=== PATIENT | female | born 1950 | race Caucasian/White ===

== ENCOUNTER 2020-06-12 12:28 | Emergency (ER) | payer MEDICARE ==
[~2020-06-12 12:28] MED LIST: ASPIRIN CHEWABL81 MG PO; FERROUS SULFAT325 MG PO; HYDROCHLOROTHIA25 MG PO; LIPITOR TAB 2020 MG PO; LIPITOR80 MG PO; LOPRESSOR100 MG PO; MOBIC15 MG PO; PLAVIX 75 MG TA75 MG PO; PRINIVIL20 MG PO; REMERON15 MG PO; TOPROL XL25 MG PO; TYLENOL 325MG325 MG PO; XANAX1 MG PO
[2020-06-12 16:58] LABS: BUN/CREATININE RATIO 13 (0-10)
[2020-06-12 18:16] LABS: HEMOGLOBIN 13.4 gm/dl (12.3-15.3); RED BLOOD COUNT 4.77 M/UL (4.00-5.10); WHITE BLOOD COUNT 7.4 K/UL (4.5-11.0)
[2020-06-12] MEDS ORDERED: K-DUR TAB 20 M20 MEQ PO (20:21)
== END 2020-06-12 22:20 | disposition home or self-care (01) ==
LOC: ER1 12:28
PROVIDERS: Emergency Medicine
DX: E87.6 Hypokalemia (principal); I10 Essential (primary) hypertension; Z85.3 Personal history of malignant neoplasm of breast; Z90.11 Acquired absence of right breast and nipple
CPT/HCPCS: 36415; 70450; 71045; 80053; 81001; 82550; 82553; 83735; 83874; 84484; 85025; 99284

== ENCOUNTER 2020-08-21 10:57 | Inpatient (IN) | payer MEDICARE, OTHER ==
[~2020-08-21] VITALS: Ht 165.1 cm; Wt 83.0 kg
[~2020-08-21 10:57] MED LIST changes: +K-DUR TAB 20 M20 MEQ PO
[2020-08-21 12:04] LABS: HEMOGLOBIN 14.3 gm/dl (12.3-15.3); RED BLOOD COUNT 5.36 M/UL (4.00-5.10)
[2020-08-21 12:29] LABS: BUN/CREATININE RATIO 10 (0-10)
[2020-08-21] MEDS ORDERED: CYMBALTA60 MG PO (14:31)
[2020-08-21] MEDS ORDERED: PROTONIX40 MG PO (14:31)
[2020-08-21] MEDS ORDERED: FERROUS SULFAT325 M2 PO (14:32)
[2020-08-21] MEDS ORDERED: ANTIVERT 12.512.5 MG PO (14:32)
[2020-08-21] MEDS ORDERED: ALPRAZOLAM1 MG PO (14:32)
[2020-08-21] MEDS ORDERED: CRESTOR10 MG PO (14:33)
[2020-08-22 03:08] LABS: HEMOGLOBIN 13.6 gm/dl (12.3-15.3); RED BLOOD COUNT 4.98 M/UL (4.00-5.10)
[2020-08-22 03:26] LABS: BUN/CREATININE RATIO 9 (0-10)
[2020-08-23 01:42] LABS: HEMOGLOBIN 13.7 gm/dl (12.3-15.3); RED BLOOD COUNT 5.07 M/UL (4.00-5.10)
[2020-08-23 01:43] LABS: WHITE BLOOD COUNT 6.9 K/UL (4.5-11.0)
[2020-08-23 02:02] LABS: BUN/CREATININE RATIO 7 (0-10)
[2020-08-23] MEDS ORDERED: LOPRESSOR 25 MG25 MG PO (09:30)
[2020-08-24 07:52] LABS: HEMOGLOBIN 12.8 gm/dl (12.3-15.3); RED BLOOD COUNT 4.82 M/UL (4.00-5.10); WHITE BLOOD COUNT 5.6 K/UL (4.5-11.0)
[2020-08-24 08:24] LABS: BUN/CREATININE RATIO 9 (0-10)
--- NOTE | 2020-08-25 09:23 | NUR ---
NURSE RECIEVED CALL FROM TELEMETRY, PATIENT HAD 11 BEAT RUN OF V-TACH. PROVIDER NOTIFIED. PROVIDER ORDERED AN EKG FOR PATIENT.
--- NOTE | 2020-08-25 18:02 | NUR ---
PERFORMED MANUAL DISEMPACTION PER DOCTORS ORDER. PATIENT HAD HAD A SMALL DARK BROWN BOWEL MOVEMENT. STOOL WAS SOFT, AND NO STOOL PALPATED IN COLON. PATIENT TOLERATED PROCEDURE WELL. COCCYXS WAS NOTED TO BE RED, BUT STILL BLANCHABLE. ALLYVEN WAS PUT IN PLACE. PATIENT WAS CLEANED, A NEW BRIEF APPLIED. WCTM.
[2020-08-26 05:49] LABS: HEMOGLOBIN 14.7 gm/dl (12.3-15.3); WHITE BLOOD COUNT 5.4 K/UL (4.5-11.0)
[2020-08-26 05:50] LABS: RED BLOOD COUNT 5.4 M/UL (4.00-5.10)
[2020-08-26 06:07] LABS: BUN/CREATININE RATIO 11 (0-10)
[2020-08-26] MEDS ORDERED: NORVASC5 MG PO (14:56)
[2020-08-26] MEDS ORDERED: OMNICEF 300 MG300 MG PO (14:56)
[2020-08-26] MEDS ORDERED: FLAGYL500 MG PO (14:56)
[2020-08-26] MEDS ORDERED: POLYETHYLENE GL17 GM PO (14:59)
[2020-08-26] MEDS ORDERED: COLACE 100MG C100 MG PO (14:59)
[2020-08-26] MEDS ORDERED: LISINOPRIL10 MG PO (14:59)
[2020-08-26] MEDS ORDERED: CEFUROXIME500 MG PO (15:42)
== END 2020-08-26 17:48 | disposition home health service (06) | DRG 388 ==
LOC: ER1 10:57 → M/S 14:02 → CDU 14:02 → M/S 16:53
PROVIDERS: Emergency Medicine; Internal Medicine Gastroenterology; Physician Assistant Medical; ADMIT Internal Medicine
PROC: 0DJ08ZZ Inspection of Upper Intestinal Tract, Via Natural or Artificial Opening Endoscopic (ICD-10-PCS; principal; 2020-08-23 10:36)
PROC: 0DBL8ZZ Excision of Transverse Colon, Via Natural or Artificial Opening Endoscopic (ICD-10-PCS; 2020-08-23 10:36)
DX: K56.41 Fecal impaction (principal); K57.31 Diverticulosis of large intestine without perforation or abscess with bleeding; I69.351 Hemiplegia and hemiparesis following cerebral infarction affecting right dominant side; N30.01 Acute cystitis with hematuria; J98.11 Atelectasis; G93.49 Other encephalopathy; I47.2 Ventricular tachycardia; R15.9 Full incontinence of feces; I10 Essential (primary) hypertension; E87.6 Hypokalemia; E83.42 Hypomagnesemia; Z20.822 Contact with and (suspected) exposure to COVID-19; B96.20 Unspecified Escherichia coli [E. coli] as the cause of diseases classified elsewhere; K21.9 Gastro-esophageal reflux disease without esophagitis; D50.9 Iron deficiency anemia, unspecified; K52.89 Other specified noninfective gastroenteritis and colitis; E78.5 Hyperlipidemia, unspecified; K63.5 Polyp of colon; Z90.49 Acquired absence of other specified parts of digestive tract; Z99.3 Dependence on wheelchair; Z79.82 Long term (current) use of aspirin; B96.89 Other specified bacterial agents as the cause of diseases classified elsewhere
CPT/HCPCS: 36415; 70450; 70551; 74018; 80048; 80053; 81001; 82272; 82550; 82553; 83605; 83735; 83874; 84132; 84484; 85025; 85027; 85610; 85730; 86850; 86900; 86901; 87077; 87086; 87186; 92610; 93005; 96374; 97110; 97110-GP-CQ; 97162; 97166; 97530-GP-CQ; 99284; A6212; C9113; J0360; J0696; J2704; J3475; J3480; J7040; U0002

== ENCOUNTER 2020-10-04 15:43 | Emergency (ER) | payer MEDICARE ==
[~2020-10-04 15:43] MED LIST changes: +ALPRAZOLAM1 MG PO; +ANTIVERT 12.512.5 MG PO; +CEFUROXIME500 MG PO; +COLACE 100MG C100 MG PO; +CRESTOR10 MG PO; +CYMBALTA60 MG PO; +FERROUS SULFAT325 M2 PO; +FLAGYL500 MG PO; +LISINOPRIL10 MG PO; +LOPRESSOR 25 MG25 MG PO; +NORVASC5 MG PO; +OMNICEF 300 MG300 MG PO; +POLYETHYLENE GL17 GM PO; +PROTONIX40 MG PO
[2020-10-04 16:14] LABS: HEMOGLOBIN 13.3 gm/dl (12.3-15.3); RED BLOOD COUNT 4.78 M/UL (4.00-5.10); WHITE BLOOD COUNT 5.3 K/UL (4.5-11.0)
[2020-10-04 16:46] LABS: BUN/CREATININE RATIO 20 (0-10)
== END 2020-10-04 18:40 | disposition home or self-care (01) ==
LOC: ER1 15:43
PROVIDERS: Physician Assistant
DX: I95.9 Hypotension, unspecified (principal); K21.9 Gastro-esophageal reflux disease without esophagitis; I10 Essential (primary) hypertension; Z86.73 Personal history of transient ischemic attack (TIA), and cerebral infarction without residual deficits; Z85.3 Personal history of malignant neoplasm of breast
CPT/HCPCS: 71045; 80053; 81001; 82550; 82553; 83605; 83874; 84484; 85025; 87040; 87086; 93005; 99284

== ENCOUNTER 2020-11-30 11:20 | Emergency (ER) | payer MEDICARE, SELFPAY ==
[2020-11-30 12:33] LABS: HEMOGLOBIN 12.9 gm/dl (12.3-15.3); RED BLOOD COUNT 4.43 M/UL (4.00-5.10); WHITE BLOOD COUNT 5.2 K/UL (4.5-11.0)
[2020-11-30 12:57] LABS: BUN/CREATININE RATIO 11 (0-10)
[2020-11-30] MEDS ORDERED: OMNICEF 300 MG300 MG PO (15:20)
== END 2020-11-30 16:00 | disposition home or self-care (01) ==
LOC: ER1 11:20
PROVIDERS: Physician Assistant
DX: N39.0 Urinary tract infection, site not specified (principal); R41.0 Disorientation, unspecified; I10 Essential (primary) hypertension; Z86.73 Personal history of transient ischemic attack (TIA), and cerebral infarction without residual deficits; Z85.3 Personal history of malignant neoplasm of breast; Z20.822 Contact with and (suspected) exposure to COVID-19
CPT/HCPCS: 0240U; 70450; 71045; 80053; 81001; 85025; 87040; 87077; 87086; 87186; 93005; 96374; 99285; J0696

== ENCOUNTER 2021-03-07 19:52 | Inpatient (IN) | payer MEDICARE, OTHER ==
[~2021-03-07] VITALS: Ht 157.5 cm; Wt 66.7 kg
[2021-03-07 21:58] LABS: BUN/CREATININE RATIO 20 (0-10)
[2021-03-07 22:28] LABS: HEMOGLOBIN 12.9 gm/dl (12.3-15.3); RED BLOOD COUNT 5.11 M/UL (4.00-5.10); WHITE BLOOD COUNT 6.7 K/UL (4.5-11.0)
[2021-03-08] MEDS ORDERED: ZESTRIL/PRINIVI10 MG PO (02:21)
[2021-03-08] MEDS ORDERED: METOPROLOL TART25 MG PO (02:21)
[2021-03-08] MEDS ORDERED: ARICEPT10 MG PO (02:24)
[2021-03-08] MEDS ORDERED: MEGACE 400400 MG/10 PO (02:25)
[2021-03-08] MEDS ORDERED: CRESTOR 10 MG T10 MG PO (09:59)
--- NOTE | 2021-03-09 04:22 | NUR ---
PATIENT HAD AN ALLEVYN DRESSING IN PLACEAFTER SACRAL DEBRIDEMENT PROCEDURE. AT APPROXIMATELY O345 THE PATIENT BLED THROUGH THE ALLEVYN DRESSING. 2 ABD BANDAGES WERE PLACED OVER THE PACKING AND HELD INTO PLACE WITH TEGADERM. I WILL CONTINUE TO MONITOR AND REPOSSITION PATIENT.
[2021-03-09 06:16] LABS: HEMOGLOBIN 13.6 gm/dl (12.3-15.3); RED BLOOD COUNT 5.44 M/UL (4.00-5.10); WHITE BLOOD COUNT 6.2 K/UL (4.5-11.0)
[2021-03-09 07:22] LABS: BUN/CREATININE RATIO 11 (0-10)
[2021-03-10 07:47] LABS: BUN/CREATININE RATIO 12 (0-10)
[2021-03-11 04:27] LABS: BUN/CREATININE RATIO 16 (0-10)
[2021-03-11 04:58] LABS: RED BLOOD COUNT 3.33 M/UL (4.00-5.10)
--- NOTE | 2021-03-11 07:37 | NUR ---
spoken to dr. ortiz and reported wound drainage with clots of blood. received order.
--- NOTE | 2021-03-11 08:21 | NUR ---
dr. venegas on the floor seen patient, reported of wound drainage, concern of hgb and family request for xanax scheduled instead of prn and dr. venegas stated will write orders.
--- NOTE | 2021-03-11 18:08 | NUR ---
notified dr. venegas of potassium and hgb levels- no orders received
[2021-03-12 07:52] LABS: HEMOGLOBIN 7.8 gm/dl (12.3-15.3); RED BLOOD COUNT 3.24 M/UL (4.00-5.10); WHITE BLOOD COUNT 6.7 K/UL (4.5-11.0)
[2021-03-12 08:14] LABS: BUN/CREATININE RATIO 17 (0-10)
--- NOTE | 2021-03-12 10:33 | NUR ---
notified Dr. Neri of patient having a heart rate of 53 this morning. No new orders at this time. Patient has no s/s of distress noted a this time.
--- NOTE | 2021-03-12 15:43 | NUR ---
Patient refuses to have blood drawn to check potassium level after she had recieved potassium protocal due to potassium level of 2.8. MD aware and new order noted to give patient two IV KCL 10meq/100ml.
--- NOTE | 2021-03-12 19:22 | NUR ---
PATIENT REFUSED TO ALLOW LAB TO DRAW BLOOD
--- NOTE | 2021-03-13 01:09 | NUR ---
PATIENT WAS VERY AGITATED THIS EVENING, REFUSED HER MEDICATIONS AND TOLD HER DAUGHTER IN LAW TO LEAVE. DAUGHTER IN LAW IS USUALLY AT THE BED SIDE UNTIL PATIENT FALLS ASLEEP FOR THE EVENING. THE PATIENT COUNTINUES TO STATE SHE WANTS TO BE LEFT ALONG AND IS ONLY WILLING TO SPEAK TO HER DR AND . WILL BE IN TO SEE HER IN THE MORNING. WILL CONTINUE TO MONITOR AND OFFER MEDICATIONS INDICATED.
--- NOTE | 2021-03-13 06:26 | NUR ---
PATIENT REFUSING MEDICATIONS MADE AWARE.
--- NOTE | 2021-03-13 15:54 | NUR ---
spoken with dr. venegas of K+ by mouth ordered to give by IVF and ok"d
[2021-03-14 06:56] LABS: HEMOGLOBIN 8.1 gm/dl (12.3-15.3); RED BLOOD COUNT 3.32 M/UL (4.00-5.10)
[2021-03-14 07:00] LABS: BUN/CREATININE RATIO 20 (0-10)
[2021-03-14 07:05] LABS: WHITE BLOOD COUNT 8.8 K/UL (4.5-11.0)
[2021-03-14] MEDS ORDERED: VANCOMYCIN HCL125 MG PO (08:43)
[2021-03-14] MEDS ORDERED: HYDROCODON-ACE1 EAC4 PO (08:43)
[2021-03-14] MEDS ORDERED: ALPRAZOLAM1 MG PO (08:43)
[2021-03-14] MEDS ORDERED: POTASSIUM CHLO10 ME2 PO (08:43)
== END 2021-03-15 00:07 | DRG 264 ==
LOC: ER1 19:52 → M/S 03-08 00:01 → PROG CARE 03-08 00:01 → CDU 03-08 00:01 → PROG CARE 03-08 01:28 → M/S 03-08 17:50
PROVIDERS: Emergency Medicine; Internal Medicine; Surgery; ADMIT Internal Medicine
PROC: B24BZZZ Ultrasonography of Heart with Aorta (ICD-10-PCS; 2021-03-08)
PROC: 0JB70ZZ Excision of Back Subcutaneous Tissue and Fascia, Open Approach (ICD-10-PCS; principal; 2021-03-08 17:58)
DX: I11.0 Hypertensive heart disease with heart failure (principal); L89.154 Pressure ulcer of sacral region, stage 4; R53.2 Functional quadriplegia; I50.33 Acute on chronic diastolic (congestive) heart failure; J96.01 Acute respiratory failure with hypoxia; E43 Unspecified severe protein-calorie malnutrition; A04.72 Enterocolitis due to Clostridium difficile, not specified as recurrent; D62 Acute posthemorrhagic anemia; N13.30 Unspecified hydronephrosis; R18.8 Other ascites; I69.351 Hemiplegia and hemiparesis following cerebral infarction affecting right dominant side; R64 Cachexia; I67.5 Moyamoya disease; I96 Gangrene, not elsewhere classified; Z20.822 Contact with and (suspected) exposure to COVID-19; Z66 Do not resuscitate; E87.6 Hypokalemia; E86.0 Dehydration; I50.9 Heart failure, unspecified; R53.81 Other malaise; F41.9 Anxiety disorder, unspecified; F32.A Depression, unspecified; K59.09 Other constipation; K21.9 Gastro-esophageal reflux disease without esophagitis; D50.9 Iron deficiency anemia, unspecified; E78.5 Hyperlipidemia, unspecified; F17.210 Nicotine dependence, cigarettes, uncomplicated; F03.90 Unspecified dementia, unspecified severity, without behavioral disturbance, psychotic disturbance, mood disturbance, and anxiety; Z74.01 Bed confinement status; Z85.3 Personal history of malignant neoplasm of breast; Z87.19 Personal history of other diseases of the digestive system; Z90.49 Acquired absence of other specified parts of digestive tract; Z90.11 Acquired absence of right breast and nipple; Z68.26 Body mass index [BMI] 26.0-26.9, adult
CPT/HCPCS: ECHO; 36415; 51702; 71045; 71260; 80048; 80053; 80061; 80202; 81001; 82550; 82553; 82607; 82728; 82746; 83605; 83690; 83735; 83874; 83880; 84100; 84132; 84439; 84443; 84484; 84550; 85018; 85025; 85652; 86140; 87040; 87086; 87324; 87449; 93005; 93306; 96365; 96366; 96368; 96375; 97161; 99285; A6212; J0692; J1650; J1940; J2001; J2060; J2704; J3370; J3480; J7030; J7050; Q9967; U0002